=== PATIENT | male | born 1995 | race American Indian/Alaskan Native ===

== ENCOUNTER 2018-12-08 10:06 | Emergency (ER) | payer SELFPAY ==
[2018-12-08 10:18] VITALS: BP 129/76
--- NOTE | 2018-12-08 10:49 | Emergency Department Report ---
Eye Injury/Foreign Body - HPI Duration: 3 Days Eye Location: Left Eye Symptoms: Eye Pain: Yes, Blurred Vision: No, Eye Redness: Yes, Grinding/Hammering Metal: No, Used Eye Protection: No, Contact Lens Use: Yes, Recalls Injury: No, Photophobia: No ED Review of Systems ROS: Stated complaint: LFT EYE/HEADACHE/PAIN Other details as noted in HPI Comment: All other systems reviewed and negative Constitutional: denies: chills, fever ENT: ear pain Respiratory: denies: cough, shortness of breath Cardiovascular: denies: chest pain, palpitations Gastrointestinal: denies: abdominal pain, nausea, vomiting ED Past Medical Hx - Past Medical History Previous Medical History?: Yes Hx Seizures: Yes - Surgical History Past Surgical History?: No - Social History Smoking Status: Current Every Day Smoker Substance Use Type: None Eye Injury Exam - Exam General: Vital signs noted. No distress. Alert and acting appropriately. - Visual Acuity Left Eye Exam: Left Injection, Left Mucous Discharge, Both EOMI, Neither Chemosis, Neither Abnormal Pupil, Neither Eye Foreign Body, Neither Lid Foreign Body, Neither Purulent Discharge, Neither Corneal Edema, Neither Photophobia ED Course Vital Signs 12/08/18 10:16 Temperature 98.3 F Pulse Rate 72 Respiratory 18 Rate Blood Pressure 129/76 O2 Sat by Pulse 96 Oximetry Critical care attestation.: If time is entered above; I have spent that time in minutes in the direct care of this critically ill patient, excluding procedure time. ED Disposition Clinical Impression: Acute conjunctivitis of left eye Disposition: DC-01 TO HOME OR SELFCARE Is pt being admited?: No Condition: Stable Instructions: Conjunctivitis (ED) Referrals: PRIMARY CARE, [Referring] - 3-5 Days
== END 2018-12-08 11:02 | disposition home or self-care (01) ==
LOC: ED 10:06
DX: H10.9 Unspecified conjunctivitis (principal); F17.200 Nicotine dependence, unspecified, uncomplicated

== ENCOUNTER 2021-01-08 00:44 | Emergency (ER) | payer SELFPAY ==
[2021-01-08 01:09] VITALS: BP 132/79
[2021-01-08] MEDS ORDERED: IBUPROFEN 800 MG TAB PO ONE (01:23)
[2021-01-08] MEDS ORDERED: IPRATROPIUM/ALBUTEROL SULFATE 3 ML AMPUL.NEB IH ONE (01:23)
--- NOTE | 2021-01-08 01:25 | Emergency Department Report ---
ED Chest Pain HPI - General Chief Complaint: Chest Pain Stated Complaint: CHEST PAIN Time Seen by Provider: 01/08/21 01:22 Source: patient Mode of arrival: Ambulatory Limitations: No Limitations - History of Present Illness Initial Comments: 25-year-old -[place] male presents to the emergency department with the complaint of midsternal chest pain that started around 10 PM while the patient was smoking a black and mild at work. All of a sudden he began having this sharp pain that is currently 8 out of 10 in intensity. It worsens with certain movements of his torso. He denies any fever, cough, shortness of breath, back pain, lower extremity swelling. He has a past medical history of asthma and seizures. He has not taken anything for symptoms prior to presentation today. No recent travel or sick contacts at home. - Related Data Previous Rx's Medication Instructions Recorded Last Taken Type Naproxen [Naprosyn] 500 mg PO BID #14 tablet 12/08/18 Unknown Rx Polymyxin B Sulf/Trimethoprim 1 drop OP TID 7 Days #1 bottle 12/08/18 Unknown Rx [Polytrim Eye Drops] Albuterol Mdi (or & Nicu Only) 2 puff IH QID PRN #8.5 gram 01/08/21 Unknown Rx [ProAir HFA Inhaler] Ibuprofen [Motrin 800 MG tab] 800 mg PO Q8HR PRN #20 tablet 01/08/21 Unknown Rx Allergies Allergy/AdvReac Type Severity Reaction Status Date / Time No Known Allergies Allergy Verified 12/08/18 10:09 Heart Score - HEART Score History: Slightly suspicious EKG: Normal Age: < 45 Risk factors: 1-2 risk factors Troponin: < normal limit HEART Score: 1 - EKG Read Time Time EKG Completed: 01:12 EKG Read Time: 01:15 - Critical Actions Critical Actions: 0-3 pts:0.9-1.7%risk of adverse cardiac event.Candidate for discharge ED Review of Systems ROS: Stated complaint: CHEST PAIN Other details as noted in HPI Comment: All other systems reviewed and negative Constitutional: denies: chills, fever Eyes: denies: eye pain, vision change ENT: denies: ear pain, throat pain Respiratory: denies: cough, shortness of breath Cardiovascular: chest pain. denies: palpitations Gastrointestinal: denies: abdominal pain, vomiting Genitourinary: denies: dysuria, discharge Musculoskeletal: denies: back pain, arthralgia Skin: denies: rash, lesions Neurological: denies: headache, weakness ED Past Medical Hx - Past Medical History Previous Medical History?: Yes Hx Seizures: Yes Hx Asthma: Yes - Surgical History Past Surgical History?: No - Social History Smoking Status: Current Every Day Smoker Substance Use Type: None - Medications Home Medications: Home Medications Medication Instructions Recorded Confirmed Last Taken Type Naproxen [Naprosyn] 500 mg PO BID #14 tablet 12/08/18 Unknown Rx Polymyxin B Sulf/Trimethoprim 1 drop OP TID 7 Days #1 bottle 12/08/18 Unknown Rx [Polytrim Eye Drops] Albuterol Mdi (or & Nicu Only) 2 puff IH QID PRN #8.5 gram 01/08/21 Unknown Rx [ProAir HFA Inhaler] Ibuprofen [Motrin 800 MG tab] 800 mg PO Q8HR PRN #20 tablet 01/08/21 Unknown Rx ED Physical Exam - General Limitations: No Limitations - Other Other exam information: GENERAL: The patient is well-developed well-nourished. HENT: Normocephalic. Atraumatic. Patient has moist mucous membranes. EYES: Extraocular motions are intact. NECK: Supple. Trachea is midline. CHEST/LUNGS: Clear to auscultation. There is no respiratory distress noted. Reproducible midsternal chest pain to palpation. No crepitus or deformity. HEART/CARDIOVASCULAR: Regular. There is no tachycardia. There is no murmur. ABDOMEN: Abdomen is soft, nontender. Patient has normal bowel sounds. SKIN: Skin is warm and dry. NEURO: The patient is awake, alert, and oriented. The patient is cooperative. The patient has no focal neurologic deficits. Normal speech. MUSCULOSKELETAL: There is no tenderness or deformity. There is no limitation range of motion. ED Course Vital Signs 01/08/21 01:06 Temperature 99.0 F Pulse Rate 69 Respiratory 18 Rate Blood Pressure 132/79 O2 Sat by Pulse 99 Oximetry JORGE score - Jorge Score Age > 65: (0) No Aspirin use within the Past 7 Days: (0) No 3 or more CAD Risk Factors: (0) No 2 or more Angina events in past 24 hrs: (0) No Known CAD with more than 50% Stenosis: (0) No Elevated Cardiac Markers: (0) No ST Deviation Greater than 0.5mm: (0) No JORGE Score: 0 ED Medical Decision Making - EKG Data -: EKG Interpreted by Me EKG shows normal: sinus rhythm, axis, intervals (Slightly prolonged HI interval), QRS complexes, ST-T waves Rate: normal - EKG Data When compared to previous EKG there are: previous EKG unavailable Interpretation: other (Sinus rhythm at 65 bpm, slightly prolonged HI interval. No ST elevation [place]) - Radiology Data Radiology results: image reviewed interpreted by me: Chest x-ray does not show any acute process. There are no pleural effusions, obvious pneumonia and there is no pneumothorax. No widened mediastinum. - Medical Decision Making This patient presents to the emergency department with a complaint of some midsternal chest discomfort and shortness of breath after smoking a black and mild earlier in the evening. On examination heart and lung sounds are normal to auscultation. The patient does not appear in any respiratory or acute distress. There is reproducible midsternal chest pain to palpation without crepitus or deformity. EKG did not have any morphology consistent with ST elevation myocardial infarction or any arrhythmia. Chest x-ray did not show any pneumonia, pleural effusions, pneumothorax, widened mediastinum, or any other acute process. Patient was given a DuoNeb breathing treatment and a dose of ibuprofen. He was reevaluated multiple times over multiple hours and is feeling improved. The patient is low on the heart and JORGE score and his chest discomfort does not appear consistent with ACS. He will be discharged home to follow-up with primary care and has been given an outpatient referral for cardiology. Critical Care Time: No Critical care attestation.: If time is entered above; I have spent that time in minutes in the direct care of this critically ill patient, excluding procedure time. ED Disposition Clinical Impression: Atypical chest pain, Costochondritis Disposition: HOME / SELF CARE / HOMELESS Is pt being admited?: No Condition: Stable Instructions: Nonspecific Chest Pain, Adult, Chest Wall Pain Additional Instructions: Please avoid any further tobacco use. Please follow-up with your primary care physician in the next few days. I have given you a referral for a local director business, Dr. Gonzalez, to follow-up regarding your chest pains. Return to the emergency department with any worsening of your symptoms, new or concerning symptoms not addressed during this current emergency department visit, or with any acute distress. Prescriptions: Ibuprofen [Motrin 800 MG tab] 800 mg PO Q8HR PRN #20 tablet PRN Reason: Pain , Severe (7-10) Albuterol Mdi (or & Nicu Only) [ProAir HFA Inhaler] 2 puff IH QID PRN #8.5 gram PRN Reason: Shortness Of Breath Referrals: JAVIER GONZALEZ MD [Staff Physician] - 2-3 Days PCP, Your [Other] - 2-3 Days Forms: Work/School Release Form(ED) Time of Disposition: 03:21
--- NOTE | 2021-01-08 03:22 | XRay Report ---
CHEST 1 VIEW INDICATION / CLINICAL INFORMATION: CP. Chest pain FINDINGS: SUPPORT DEVICES: None. HEART / MEDIASTINUM: No significant abnormality. LUNGS / PLEURA: No significant pulmonary or pleural abnormality. No pneumothorax. ADDITIONAL FINDINGS: No significant additional findings. IMPRESSION: 1. No acute findings. Signer Name: Poncho Singh MD Signed: 01/08/2021 3:18 AM Workstation Name: [id number]
--- NOTE | 2021-01-10 11:13 | Electrocardiograph Report ---
[facility] Test Date: 2021-01-08 Test Time: 01:12:06 Pat Name: ALICE ARROYO Department: Room: Gender: M Security Site Supervisor: SHAKIRA : 1995 Requested By: CASSIE ALANIZ Order Number: [id number] Reading MD: Justus Moody Measurements Intervals [place] Rate: 65 P: 65 [place]: 209 QRS: 72 QRSD: 91 T: 26 QT: 408 QTc: 426 Interpretive Statements Sinus rhythm Borderline prolonged AK interval No previous ECG available for comparison Electronically Signed On 01-10-2021 11:13:10 EDT by Justus Moody
== END 2021-01-08 03:38 | disposition home or self-care (01) ==
LOC: ED 00:44
DX: M94.0 Chondrocostal junction syndrome [Tietze] (principal); J45.909 Unspecified asthma, uncomplicated; F17.200 Nicotine dependence, unspecified, uncomplicated; Z86.69 Personal history of other diseases of the nervous system and sense organs; Z79.899 Other long term (current) drug therapy
CPT/HCPCS: 71046; 93005; 94640; 99283

== ENCOUNTER 2021-08-07 00:20 | Emergency (ER) | payer SELFPAY ==
[2021-08-07] MEDS ORDERED: IPRATROPIUM 0.02% NEBU 2.5 ML IH ONE ×2 (02:17→02:26)
[2021-08-07] MEDS ORDERED: ALBUTEROL 2.5 MG/3 ML NEBU IH ONE ×2 (02:17→02:26)
[2021-08-07] MEDS ORDERED: predniSONE 20 MG TAB PO ONE (02:28)
--- NOTE | 2021-08-07 02:31 | Emergency Department Report ---
HPI - General Chief Complaint: Adult Asthma Time Seen by Provider: 08/07/21 02:24 - HPI HPI: Room 3 The patient is a 26-year-old male present with a chief complaint of asthma exacerbation. Patient states every year when he is exposed to pollen exacerb ates his asthma. Patient states this happened again today with wheezing and and a nonproductive cough. Patient denies fever. ED Past Medical Hx - Past Medical History Hx Seizures: Yes Hx Asthma: Yes - Surgical History Past Surgical History?: No - Family History Family history: no significant - Social History Smoking Status: Former Smoker (None x1 month) Substance Use Type: None (Denies illicit drug use) - Medications Home Medications: Home Medications Medication Instructions Recorded Confirmed Last Taken Type Naproxen [Naprosyn] 500 mg PO BID #14 tablet 12/08/18 Unknown Rx Polymyxin B Sulf/Trimethoprim 1 drop OP TID 7 Days #1 bottle 12/08/18 Unknown Rx [Polytrim Eye Drops] Ibuprofen [Motrin 800 MG tab] 800 mg PO Q8HR PRN #20 tablet 01/08/21 Unknown Rx Albuterol Mdi (or & Nicu Only) 2 puff IH QID PRN #8.5 gram 08/07/21 Unknown Rx [ProAir HFA Inhaler] Albuterol Sulfate [Albuterol 0.63% 0.63 mg IH TID PRN #75 ml 08/07/21 Unknown Rx NEBS] Prednisone [predniSONE 10 mg 10 mg PO .TAPER #1 08/07/21 Unknown Rx (6-Day Pack, 21 Tabs)] ED Review of Systems ROS: Stated complaint: ASTHMA TREATMENT Other details as noted in HPI Constitutional: denies: fever Eyes: denies: eye pain ENT: denies: throat pain Respiratory: cough, shortness of breath, wheezing Cardiovascular: denies: chest pain Endocrine: no symptoms reported Gastrointestinal: denies: abdominal pain Genitourinary: denies: dysuria Musculoskeletal: myalgia. denies: back pain Neurological: denies: headache Physical Exam - Physical Exam Vital Signs: Vital Signs 08/07/21 00:45 Temperature 98.6 F Pulse Rate 72 Respiratory 18 Rate Blood Pressure 121/73 [Right] O2 Sat by Pulse 93 Oximetry Physical Exam: GENERAL: The patient is well-developed well-nourished male lying on stretcher using cell phone while receiving nebulizer not appearing to be in acute distress. [] HEENT: Normocephalic. Atraumatic. Extraocular motions are intact. Patient has moist mucous membranes. NECK: Supple. Trachea midline CHEST/LUNGS: Faint wheezing diffusely. There is no respiratory distress noted. HEART/CARDIOVASCULAR: Regular. There is no tachycardia. There is no gallop rub or murmur. ABDOMEN: Abdomen is soft, nontender. Patient has normal bowel sounds. There is no abdominal distention. SKIN: There is no rash. There is no edema. There is no diaphoresis. NEURO: The patient is awake, alert, and oriented. The patient is cooperative. The patient has no focal neurologic deficits. The patient has normal speech MUSCULOSKELETAL: There is no evidence of acute injury. ED Course Vital Signs 08/07/21 00:45 Temperature 98.6 F Pulse Rate 72 Respiratory 18 Rate Blood Pressure 121/73 [Right] O2 Sat by Pulse 93 Oximetry - Reevaluation(s) Reevaluation #1: 08/07/21 03:48 Patient states he feels good, lungs clear to auscultation bilaterally ED Medical Decision Making - Radiology Data Radiology results: report reviewed (Chest x-ray), image reviewed (Chest x-ray) interpreted by me: Chest x-ray-no definite focal infiltrates, no pneumothorax [facility] [address] [place] [address] XRay Report Signed Patient: ALICE ARROYO MR#: [id number] : 1995 Acct:[id number] Age/Sex: 26 / M ADM Date: 08/07/21 Loc: ED Attending Dr: Ordering Physician: THERON MCPHERSON MD Date of Service: 08/07/21 Procedure(s): XR chest 1V ap Accession Number(s): [id number] cc: THERON MCPHERSON MD Fluoro Time In Minutes: CHEST 1 VIEW INDICATION / CLINICAL INFORMATION: Shortness of breath, cough. COMPARISON: Chest x-ray 01/08/2021 FINDINGS: Heart size appears within normal limits. Mediastinal contour demonstrates no significant abnormality. Pulmonary vasculature appears within normal limits. Lungs are clear. Bones and soft tissues demonstrate no significant abnormalities. IMPRESSION: 1. No active cardiopulmonary disease. Signer Name: Montse Denis II, MD Signed: 08/07/2021 3:00 AM Workstation Name: [id number] Transcribed By: HUNTER Dictated By: MONTSE DENIS II, MD Electronically Authenticated By: MONTSE DENIS II, MD Signed Date/Time: 08/07/21299 DD/ 9 TD/TT: - Differential Diagnosis Acute asthma exacerbation, pneumonia Critical care attestation.: If time is entered above; I have spent that time in minutes in the direct care of this critically ill patient, excluding procedure time. ED Disposition Clinical Impression: Acute asthma exacerbation Disposition: HOME / SELF CARE / HOMELESS Is pt being admited?: No Does the pt Need Aspirin: No Condition: Stable Instructions: Asthma, Adult Additional Instructions: Return to the emergency department should you develop worsening symptoms, inability to tolerate food or liquids, high fever or any other concerns Prescriptions: Albuterol Sulfate [Albuterol 0.63% NEBS] 0.63 mg IH TID PRN #75 ml PRN Reason: Wheezing Prednisone [predniSONE 10 mg (6-Day Pack, 21 Tabs)] 10 mg PO .TAPER #1 Albuterol Mdi (or & Nicu Only) [ProAir HFA Inhaler] 2 puff IH QID PRN #8.5 gram PRN Reason: Shortness Of Breath Referrals: [facility] [Provider Group] - 3-5 Days Time of Disposition: 03:50
--- NOTE | 2021-08-07 03:04 | XRay Report ---
CHEST 1 VIEW INDICATION / CLINICAL INFORMATION: Shortness of breath, cough. COMPARISON: Chest x-ray 01/08/2021 FINDINGS: Heart size appears within normal limits. Mediastinal contour demonstrates no significant abnormality. Pulmonary vasculature appears within normal limits. Lungs are clear. Bones and soft tissues demonstr ate no significant abnormalities. IMPRESSION: 1. No active cardiopulmonary disease. Signer Name: Berto Martin II, MD Signed: 08/07/2021 3:00 AM Workstation Name: [id number]
[2021-08-07 05:07] VITALS: BP 126/66
== END 2021-08-07 05:08 | disposition home or self-care (01) ==
LOC: ED 00:20
DX: J45.901 Unspecified asthma with (acute) exacerbation (principal); R56.9 Unspecified convulsions; Z87.891 Personal history of nicotine dependence
CPT/HCPCS: 71045; 94640; 94644; 99283

== ENCOUNTER 2021-12-01 19:55 | Emergency (ER) | payer SELFPAY ==
[2021-12-01] MEDS ORDERED: SODIUM CHLORIDE 0.9% 1000 ML 1,000 ML IV ONE (20:46)
--- NOTE | 2021-12-01 21:16 | XRay Report ---
CHEST 1 VIEW 12/01/2021 9:02 PM INDICATION / CLINICAL INFORMATION: Altered Mental Status. COMPARISON: 08/07/2021. FINDINGS: SUPPORT DEVICES: None. HEART / MEDIASTINUM: No significant abnormality. LUNGS / PLEURA: No significant pulmonary or pleural abnormality. No pneumothorax. ADDITIONAL FINDINGS: No significant additional findings. IMPRESSION: No acute abnormality. Signer Name: Wicho Monroy MD Signed: 12/01/2021 9:12 PM Workstation Name: [id number]
[2021-12-01 21:33] LABS: Basophils % (Auto) 0.3 % (0.0-1.8); Eosinophils # (Auto) 0.2 K/mm3 (0.0-0.4); Eosinophils % (Auto) 2.8 % (0.0-4.3); Hematocrit 41.8 % (35.5-45.6); Lymphocytes # (Auto) 2.4 K/mm3 (1.2-5.4); Lymphocytes % (Auto) 42.5 % (13.4-35.0); Mean Corpuscular HGB Conc 33 % (32-34); Mean Corpuscular Volume 79 fl (84-94); Monocytes # (Auto) 0.3 K/mm3 (0.0-0.8); Platelet Count 272 K/mm3 (140-440); Red Blood Count 5.31 M/mm3 (3.65-5.03); Red Cell Distribution Width 14.2 % (13.2-15.2)
[2021-12-01 21:40] LABS: Alanine Aminotransferase 12 units/L (7-56); Albumin 4.2 g/dL (3.9-5); BUN/Creatinine Ratio 13; Blood Urea Nitrogen 16 mg/dL (9-20); Hemolysis Index 12
[2021-12-01 21:47] LABS: INR 0.91 (0.87-1.13)
[2021-12-01 22:15] LABS: Amphetamine Screen,Urine Negative; Benzodiazepines Screen,Urine Negative; Cocaine Screen,Urine Negative; Methadone Screen,Urine Negative; Opiate Screen,Urine Negative
[2021-12-01 22:35] LABS: Cannabinoid Screen,Urine Positive
[2021-12-01 22:38] LABS: Mucus,Urine FEW /HPF
[2021-12-01 22:47] LABS: Color,Urine Yellow (Yellow)
--- NOTE | 2021-12-01 23:18 | Emergency Department Report ---
ED General Adult HPI - General Chief complaint: Syncope Stated complaint: WEAKNESS Time Seen by Provider: 12/01/21 20:46 Source: patient Mode of arrival: Stretcher Limitations: No Limitations - History of Present Illness Initial comments: ALMOST PASSED OUT AT WORK TONIGHT. STATED THAT HIS HEART WAS RACING WHEN SYMPTOM OCCURRED. DENIED CHESTPAIN. -: hour(s) Consistency: now resolved Improves with: none Worsens with: none Treatments Prior to Arrival: none - Related Data Previous Rx's Medication Instructions Recorded Last Taken Type Naproxen [Naprosyn] 500 mg PO BID #14 tablet 12/08/18 Unknown Rx Polymyxin B Sulf/Trimethoprim 1 drop OP TID 7 Days #1 bottle 12/08/18 Unknown Rx [Polytrim Eye Drops] Ibuprofen [Motrin 800 MG tab] 800 mg PO Q8HR PRN #20 tablet 01/08/21 Unknown Rx Albuterol Mdi (or & Nicu Only) 2 puff IH QID PRN #8.5 gram 08/07/21 Unknown Rx [ProAir HFA Inhaler] Albuterol Sulfate [Albuterol 0.63% 0.63 mg IH TID PRN #75 ml 08/07/21 Unknown Rx NEBS] Prednisone [predniSONE 10 mg 10 mg PO .TAPER #1 08/07/21 Unknown Rx (6-Day Pack, 21 Tabs)] Allergies Allergy/AdvReac Type Severity Reaction Status Date / Time No Known Allergies Allergy Verified 08/07/21 02:26 ED Review of Systems ROS: Stated complaint: WEAKNESS Other details as noted in HPI Constitutional: denies: chills, fever Eyes: denies: eye pain, eye discharge, vision change ENT: denies: ear pain, throat pain Respiratory: denies: cough, shortness of breath, wheezing Cardiovascular: denies: chest pain, palpitations Endocrine: no symptoms reported Gastrointestinal: denies: abdominal pain, nausea, diarrhea Genitourinary: denies: urgency, dysuria Musculoskeletal: denies: back pain, joint swelling, arthralgia Skin: denies: rash, lesions Neurological: denies: headache, weakness, paresthesias Psychiatric: denies: anxiety, depression Hematological/Lymphatic: denies: easy bleeding, easy bruising ED Past Medical Hx - Past Medical History Previous Medical History?: Yes Hx Hypertension: No Hx CVA: No Hx Seizures: Yes Hx Asthma: Yes - Surgical History Past Surgical History?: No - Social History Smoking Status: Never Smoker Substance Use Type: None - Medications Home Medications: Home Medications Medication Instructions Recorded Confirmed Last Taken Type Naproxen [Naprosyn] 500 mg PO BID #14 tablet 12/08/18 Unknown Rx Polymyxin B Sulf/Trimethoprim 1 drop OP TID 7 Days #1 bottle 12/08/18 Unknown Rx [Polytrim Eye Drops] Ibuprofen [Motrin 800 MG tab] 800 mg PO Q8HR PRN #20 tablet 01/08/21 Unknown Rx Albuterol Mdi (or & Nicu Only) 2 puff IH QID PRN #8.5 gram 08/07/21 Unknown Rx [ProAir HFA Inhaler] Albuterol Sulfate [Albuterol 0.63% 0.63 mg IH TID PRN #75 ml 08/07/21 Unknown Rx NEBS] Prednisone [predniSONE 10 mg 10 mg PO .TAPER #1 08/07/21 Unknown Rx (6-Day Pack, 21 Tabs)] ED Physical Exam - General Limitations: No Limitations General appearance: alert, in no apparent distress - Head Head exam: Present: atraumatic, normocephalic - Eye Eye exam: Present: normal appearance - ENT ENT exam: Present: mucous membranes moist - Neck Neck exam: Present: normal inspection - Respiratory Respiratory exam: Present: normal lung sounds bilaterally. Absent: respiratory distress - Cardiovascular Cardiovascular Exam: Present: regular rate, normal rhythm. Absent: systolic mur mur, diastolic murmur, rubs, gallop - GI/Abdominal GI/Abdominal exam: Present: soft, normal bowel sounds - Rectal Rectal exam: Present: deferred - Extremities Exam Extremities exam: Present: normal inspection - Back Exam Back exam: Present: normal inspection - Neurological Exam Neurological exam: Present: alert, oriented X3 - Psychiatric Psychiatric exam: Present: normal affect, normal mood - Skin Skin exam: Present: warm, dry, intact, normal color. Absent: rash ED Course Vital Signs 12/01/21 20:56 Temperature 98.5 F Pulse Rate 72 Respiratory 18 Rate Blood Pressure 142/80 O2 Sat by Pulse 99 Oximetry ED Medical Decision Making - Lab Data Result diagrams: 12/01/21 21:06 12/01/21 21:06 Critical care attestation.: If time is entered above; I have spent that time in minutes in the direct care of this critically ill patient, excluding procedure time. ED Disposition Clinical Impression: Dehydration, Near syncope Disposition: 01 HOME / SELF CARE / HOMELESS Is pt being admited?: No Does the pt Need Aspirin: No Condition: Stable Instructions: Dehydration, Adult, [id number], Near-Syncope, [id number]
[2021-12-01 23:39] VITALS: BP 124/82
--- NOTE | 2021-12-02 09:18 | Electrocardiograph Report ---
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
== END 2021-12-01 23:42 | disposition home or self-care (01) ==
LOC: ED 19:55
DX: E86.0 Dehydration (principal); R55 Syncope and collapse; J45.909 Unspecified asthma, uncomplicated; Z79.899 Other long term (current) drug therapy
CPT/HCPCS: 36415; 71045; 80053; 80307; 81001; 82550; 84484; 85025; 85610; 93005; 96360; 96361; 99284; J7030; 80320; G0480